=== PATIENT | male | born 2005 | race Two or more races ===

== ENCOUNTER → 2025-03-22 | Outpatient (CLI) | payer BC, SELFPAY ==
--- NOTE | 2025-03-22 08:32 | XR_ITS ---
Examination: Lumbar spine, 5 views Technique: Lumbar spine AP, lateral, coned lateral lower lumbar spine, bilateral obliques 5 views Exam date and time: March 22, 2025 0833 hours INDICATIONS: Lower back pain beginning one week ago. FINDINGS: Adequate alignment lumbar vertebral bodies No lumbar fracture Mild disc narrowing posteriorly L5-S1 IMPRESSION: Mild disc narrowing posteriorly L5-S1
[2025-03-22 09:46] LABS: Basophils % (Auto) 0 % (0-2.5); Eosinophils # (Auto) 0.1 Thou/mm3 (0.0-0.5); Eosinophils % (Auto) 1 % (0-10); Immature Granulocytes % (Auto) 0 % (0-0); Immature Granulocytes Auto 0.01 Thou/mm3 (0.00-0.00); Lymphocytes # (Auto) 2.7 Thou/mm3 (1.0-4.8); Lymphocytes % (Auto) 43 % (10-50); Mean Corpuscular Hemoglobin 30.2 pg (25.0-35.0); Mean Corpuscular Volume 89 fL (80-100); Monocytes # (Auto) 0.4 Thou/mm3 (0.0-0.8); Monocytes % (Auto) 6 % (0-12); Neutrophils # (Auto) 3.1 Thou/mm3 (1.8-7.7); Neutrophils % (Auto) 49 % (37-80); Nucleated Red Blood Cell % 0 /100 WBC (0); Platelet Count 353 Thou/mm3 (140-440); RDW Standard Deviation 42.5 fL (35.1-43.9); White Blood Count 6.3 Thou/mm3 (4.5-11.0)
[2025-03-22 09:52] LABS: Collection Type, Urine Clean Catch
[2025-03-22 10:05] LABS: Alanine Aminotransferase 39 U/L (10-49); Albumin, Serum 4.7 gm/dL (3.5-5.0); Albumin/Globulin Ratio 1.7 (1.2-2.2); Alkaline Phosphatase 76 U/L (46-116); Anion Gap 7 (7-16); Aspartate Amino Transferase 24 U/L (0-34); BUN/Creatinine Ratio 7 Ratio (12-20); Bilirubin,Direct 0.1 mg/dL (0.0-0.3); Bilirubin,Total 0.3 mg/dL (0.3-1.2); Blood Urea Nitrogen 7 mg/dL (9-23); C-Reactive Protein < 0.5 mg/dL (0.0-0.9); Calcium 9.3 mg/dL (8.3-10.6); Calcium (Corrected) 9.3 mg/dL (8.5-10.1); Carbon Dioxide 29.2 mMol/L (20.0-31.0); Chloride 106 mMol/L (98-107); Globulin 2.7 gm/dL (2.3-3.5); Glucose 99 mg/dL (74-106); Osmolality,Calculated 281 (275-295); Potassium 4.2 mMol/L (3.4-5.1); Sed Rate (ESR) < 1 mm/hr (0-15); Sodium 142 mMol/L (136-145); Total Protein 7.4 gm/dL (5.7-8.2); eGFR > 60 See Note
[2025-03-22 10:06] LABS: Vitamin D 25 Hydroxy Total 23.5 ng/mL (7.3-40.2)
[2025-03-22 10:07] LABS: Ferritin 13 ng/mL (10.5-307.3)
[2025-03-22 10:20] LABS: Bilirubin,Urine Negative (Negative); Blood,Urine Negative (Negative); Clarity,Urine Clear (Clear/Hazy); Color,Urine Lt-Yellow (Lt Yel-Yel); Culture Indicated,Urine Not Indicated; Glucose, Urine Negative (Negative); Ketones,Urine Negative (Negative); Leukocyte Esterase,Urine Positive (Negative); Nitrite,Urine Negative (Negative); Protein,Urine Negative (Neg - Trace); RBC,Urine 3 /hpf (0-3); Specific Gravity,Urine 1.021 (1.001-1.035); Squamous Epithelial Cell,Urine < 1 /hpf (0-5); Urobilinogen,Urine Negative mg/dL (0.0-1.0); WBC,Urine 7 /hpf (0-5)
[2025-03-25 11:50] LABS: Gamma Glutamyl Transpeptidase* 29 U/L (3-70); IgG, Serum* 1281 mg/dL (600-1640)
== END | disposition home or self-care (01) ==
LOC: CDIM 08:23 → COPL 08:53
PROVIDERS: Physician Assistant; PCP Family Medicine; Referring Provider Pediatrics; Visit Provider Radiology Diagnostic Radiology
DX: M48.07 Spinal stenosis, lumbosacral region (principal); M54.50 Low back pain, unspecified; R51.9 Headache, unspecified; K51.918 Ulcerative colitis, unspecified with other complication; K83.01 Primary sclerosing cholangitis
CPT/HCPCS: 36415; 72110; 80053; 81001; 82248; 82306; 82728; 82784; 82977; 85025; 85652; 86140

== ENCOUNTER → 2025-07-20 | Outpatient (CLI) | payer BC, SELFPAY ==
[2025-07-20 09:55] LABS: Misc Send Out* See Sep Rpt; Quantiferon-TB* See Sep Rpt
[2025-07-20 11:11] LABS: Basophils # (Auto) 0.0 Thou/mm3 (0.0-0.2); Basophils % (Auto) 0 % (0-2.5); Eosinophils # (Auto) 0.1 Thou/mm3 (0.0-0.5); Eosinophils % (Auto) 1 % (0-10); Hematocrit 44.5 % (41.0-53.0); Hemoglobin 15.3 g/dL (13.5-16.0); Immature Granulocytes Auto 0.02 Thou/mm3 (0.00-0.00); Lymphocytes # (Auto) 1.7 Thou/mm3 (1.0-4.8); Lymphocytes % (Auto) 27 % (10-50); Mean Corpuscular HGB Conc 34.4 g/dl (31.0-37.0); Mean Corpuscular Hemoglobin 30.5 pg (25.0-35.0); Mean Corpuscular Volume 89 fL (80-100); Monocytes # (Auto) 0.8 Thou/mm3 (0.0-0.8); Monocytes % (Auto) 12 % (0-12); Neutrophils # (Auto) 3.7 Thou/mm3 (1.8-7.7); Neutrophils % (Auto) 59 % (37-80); Nucleated Red Blood Cell # 0.00 Thou/mm3 (0.00-0.00); Nucleated Red Blood Cell % 0 /100 WBC (0); Platelet Count 312 Thou/mm3 (140-440); RDW Standard Deviation 40.8 fL (35.1-43.9); Red Blood Count 5.01 Miln/mm3 (4.50-5.90); White Blood Count 6.3 Thou/mm3 (4.5-11.0)
[2025-07-20 11:21] LABS: Vitamin B12 482 pg/mL (211-911); Vitamin D 25 Hydroxy Total 10.5 ng/mL (7.3-40.2)
[2025-07-20 11:22] LABS: Ferritin 30 ng/mL (10.5-307.3)
[2025-07-20 11:30] LABS: Alanine Aminotransferase 42 U/L (10-49); Albumin, Serum 5.2 gm/dL (3.5-5.0); Alkaline Phosphatase 79 U/L (46-116); Aspartate Amino Transferase 28 U/L (0-34); Bilirubin,Direct 0.2 mg/dL (0.0-0.3); Bilirubin,Total 0.6 mg/dL (0.3-1.2); C-Reactive Protein < 0.5 mg/dL (0.0-0.9); Total Protein 7.4 gm/dL (5.7-8.2)
[2025-07-20 11:48] LABS: Sed Rate (ESR) 2 mm/hr (0-15)
[2025-07-26 06:59] LABS: Gamma Glutamyl Transpeptidase* 27 U/L (3-70); IgG, Serum* 1371 mg/dL (600-1640)
== END | disposition home or self-care (01) ==
LOC: COPL 09:24
PROVIDERS: PCP Family Medicine; Referring Provider Pediatrics Pediatric Gastroenterology; Visit Provider Pediatrics Pediatric Gastroenterology
DX: K51.00 Ulcerative (chronic) pancolitis without complications (principal); K83.01 Primary sclerosing cholangitis; K51.918 Ulcerative colitis, unspecified with other complication
CPT/HCPCS: 36415; 80076; 82306; 82607; 82728; 82784; 82977; 85025; 85652; 86140; 86480